=== PATIENT | female | born 1990 | race Caucasian/White ===

== ENCOUNTER 2016-08-06 18:45 | Emergency (ER) | payer BC, OTHER ==
[2016-08-06 19:13] VITALS: BP 130/82; PULSE 106; TEMP 100.1; BMI 29.2
--- NOTE | 2016-08-06 19:42 | PDOC ---
History of Present Illness - General History Source: Patient Exam Limitations: No Limitations - History of Present Illness Initial Comments: 08/06/16 19:47 The patient is a 25 year old female with no significant past medical history who presents to the ED with complaints of 2 days of neck pain described as pressure, fatigue, loss of appetite, productive cough, and fever (tmax 101). She also has been experiencing body aches. The patient states that she works in an animal hospital and recently was interacting with a dog who had Leptospirosis. She denies any nausea, vomiting, diarrhea. She denies any chest pain. She denies any shortness of breath. PAST MEDICAL HISTORY: no significant history PAST SURGICAL HISTORY: no significant history FAMILY HISTORY: no pertinent history SOCIAL HISTORY: Pt lives with family and is employed. MEDICATIONS: reviewed ALLERGIES: As per nursing notes General: +fever, fatigue No weakness, no weight loss HEENT: No change in vision. No sore throat,. No ear pain CardioVascular: No chest pain or shortness of breath Respiratory: +productive cough No wheezing. Gastrointestinal: no nausea, vomiting, diarrhea or constipation, No rectal bleeding Genitourinary: No dysuria, hematuria, or frequency Musculoskeletal: +body aches Neurologic: No headache, vertigo, dizziness or loss of consciousness Psychiatric: nor depression Skin: No rashes or easy bruising Endocrine: no abnormal weight change Allergic: no skin or latex allergy All other systems reviewed and normal GENERAL: The patient is awake, alert, and fully oriented, in no acute distress. HEAD: Normal with no signs of trauma. EYES: Pupils equal, round and reactive to light, extraocular movements intact, sclera anicteric, conjunctiva clear. ENT: Mild erythema over posterior oropharynx EXTREMITIES: Normal range of motion, no edema. NEUROLOGICAL: Normal speech, normal gait. PSYCH: Normal mood, normal affect. SKIN: Warm, Dry, normal turgor, no rashes or lesions noted. <Ruth Jesus - Last Filed: 08/06/16 19:46> - General History Source: Patient Exam Limitations: No Limitations - History of Present Illness Initial Comments: 08/06/16 21:30 A portion of this note was documented by scribe services under my direction. I have reviewed the details of the note, within reason, and agree with the documentation. The case summary and management plan written by me. Assessment and plan: This is a 25-year-old female who comes in complaining of a viral upper respiratory tract symptoms. 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 Patient is concerned she may have leptospirosis. Patient symptoms are mild in comparison to what I would expect for leptospirosis however I did send a test for leptospirosis as she was exposed and it is concerned. Patient was discharged home will follow-up with her primary care doctor as needed <Pipe Moreno I - Last Filed: 08/06/16 21:31> - General Chief Complaint: Cold Symptoms Stated Complaint: COUGH, SORE THROAT, BODY ACHES, BACK PAIN Time Seen by Provider: 08/06/16 19:08 Past History <Ruth Jesus - Last Filed: 08/06/16 19:46> - Immunization History Immunization Up to Date: No - Psycho/Social/Smoking Cessation Hx Anxiety: No Suicidal Ideation: No Smoking History: Current every day smoker Have you smoked in the past 12 months: Yes Number of Cigarettes Smoked Daily: 7 Information on smoking cessation initiated: Yes 'Breaking Loose' booklet given: 04/01/15 Hx Alcohol Use: Yes (EVERY 2 TO 3 DAYS) Drug/Substance Use Hx: Yes (MARIJUANA) Substance Use Type: None <Pipe Moreno I - Last Filed: 08/06/16 21:31> - Past Medical History Allergies/Adverse Reactions: Allergies Allergy/AdvReac Type Severity Reaction Status Date / Time No Known Allergies Allergy Verified 08/06/16 19:07 Home Medications: Ambulatory Orders NK [No Known Home Medication] 04/01/15 *Physical Exam - Vital Signs Last Vital Signs Temp Pulse Resp BP Pulse Ox 100.1 F H 106 H 16 130/82 99 08/06/16 19:05 08/06/16 19:05 08/06/16 19:05 08/06/16 19:05 08/06/16 19:05 <Ruth Jesus - Last Filed: 08/06/16 19:46> - Vital Signs Last Vital Signs Temp Pulse Resp BP Pulse Ox 100.1 F H 106 H 16 130/82 99 08/06/16 19:05 08/06/16 19:05 08/06/16 19:05 08/06/16 19:05 08/06/16 19:05 <Pipe Moreno I - Last Filed: 08/06/16 21:31> *DC/Admit/Observation/Transfer - Attestations Scribe Attestion: 08/06/16 19:50 Documentation prepared by Ruth Jesus, acting as medical office administrator for Pipe Moreno MD. <Ruth Jesus - Last Filed: 08/06/16 19:46> - Discharge Dispostion Admit: No <Pipe Moreno I - Last Filed: 08/06/16 21:31> Diagnosis at time of Disposition: Viral illness, Influenza-like illness - Discharge Dispostion Disposition: HOME Condition at time of disposition: Good - Patient Instructions Printed Discharge Instructions: DI for Viral Upper Respiratory Infection -- Adult Additional Instructions: Alternate acetaminophen with ibuprofen every 3 hours as needed for fever and bodyaches. Stay well hydrated, rest and the follow-up with your primary care doctor next week for the result of your leptospirosis test. Return to the emergency department immediately with ANY new, persistent or worsening symptoms. Continue any medications as previously prescribed by your physician. You should follow up with your primary doctor as soon as possible regarding today's emergency department visit. . Please make sure your doctor reviews the results of your emergency evaluation. Thank you for coming to the Emergency Department today for your care. It was a pleasure to see you today. Please note that your evaluation is INCOMPLETE until you follow-up with your doctor. - Post Discharge Activity Work/School Note: Back to Work
== END 2016-08-06 19:50 | disposition home or self-care (01) ==
LOC: FER 18:45
DX: J11.1 Influenza due to unidentified influenza virus with other respiratory manifestations (principal); B34.9 Viral infection, unspecified; F17.210 Nicotine dependence, cigarettes, uncomplicated
CPT/HCPCS: 36415; 86720; 99282-25